=== PATIENT | female | born 1950 | race Caucasian/White ===

== ENCOUNTER 2018-08-12 17:35 | Emergency (ER) | payer MEDICARE, BC ==
--- NOTE | 2018-08-12 18:32 | EDM.PDOC ---
ED HPI GENERAL MEDICAL PROBLEM - General Chief Complaint: Bite:Animal, Insect Stated Complaint: DEER TICK Time Seen by Provider: 08/12/18 18:00 - History of Present Illness INITIAL COMMENTS - FREE TEXT/NARRATIVE: Mrs. Caldwell is a very active 68 year-old female who does not have a primary care provider locally established. Patient was evaluation 1 week ago for a large erythematous sore likely secondary to a tick on her left lateral thigh which subsequently improved. She had a another tick bite on the right lower lateral leg which has a small erythematous ring around it. She took a picture of the area 1 weeks ago. She was seen at a local urgent care and was prescribed doxycycline 100 mg twice a day for 10 days. Patient presents today with a another tick bite on her right upper inner arm. The tick was not there last evening when she did complete tick check. The tick is embedded with slight surrounding erythema. She attempted to remove the tick but was only able to piece out the leg of the tick. He should have mild surrounding erythema in the area but no significant discomfort. 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: Musculoskeletal History: Reports: None Endocrine/Metabolic History: Reports: Hypoparathyroidism - Past Surgical History Head Surgeries/Procedures: Reports: None HEENT Surgical History: Reports: None Cardiovascular Surgical History: Reports: None GI Surgical History: Reports: Appendectomy Female Surgical History: Reports: Section, Hysterectomy Endocrine Surgical History: Reports: None, Thyroidectomy Musculoskeletal Surgical History: Reports: Other (See Below) Dermatological Surgical History: Reports: None Social & Family History - Tobacco Use Smoking Status *Q: Never Smoker Second Hand Smoke Exposure: No - Caffeine Use Caffeine Use: Reports: Coffee - Recreational Drug Use Recreational Drug Use: No ED ROS GENERAL - Review of Systems Review Of Systems: ROS reveals no pertinent complaints other than HPI. ED EXAM, ANIMAL BITE - Physical Exam Exam: See Below Exam Limited By: No Limitations General Appearance: Alert, WD/WN, No Apparent Distress Eye Exam: Bilateral Eye: EOMI, PERRL Ears: Normal External Exam, Hearing Grossly Normal Nose: Normal Inspection, Normal Mucosa Throat/Mouth: Normal Inspection Head: Normocephalic Neck: Normal Inspection, Supple, Full Range of Motion Respiratory/Chest: No Respiratory Distress Cardiovascular: Regular Rate, Rhythm Extremities: Normal Inspection (imbedded tick right inner upper arm with central bruising and slight surround erythema. Mild pain to palpation. No warmth or induration noted. ), Normal Range of Motion, No Pedal Edema, Normal Capillary Refill Neurological: Alert, Oriented, CN II-XII Intact, Normal Cognition, Normal Gait, Normal Reflexes, No Motor/Sensory Deficits Psychiatric: Normal Affect, Normal Mood Skin Exam: Warm/Dry, DRY, I, Normal Color, NR ED ANIMAL BITE PROCEDURES - Foreign Body Removal Indication:: Tick removal Right inner upper am. Consent Obtained: Patient Anesthesia Type: Local (Lidocaine 1% with epi) Findings:: Area to cleansed with topical alcohol before local injection and before tick removal. Pickups used to pull skin and small 11 blade scalp used to remove tick. Area was bandage in an appropriate manner. Complications:: No Course - Vital Signs Last Recorded V/S: Last Vital Signs Temp 37.2 C 08/12/18 17:52 Pulse 95 08/12/18 17:52 Resp 16 08/12/18 17:52 BP 157/90 H 08/12/18 17:52 Pulse Ox 97 08/12/18 17:52 - Orders/Labs/Meds Orders: Active Orders 24 hr Category Date Time Status LYME (B. BURGDORFERI) PCR Urgent Lab 08/12/18 18:19 Stop Req LYMEAB(IGG/M)BABESIEHRLIC Routine Lab 08/12/18 18:21 Ordered Departure - Departure Time of Disposition: 18:45 Disposition: Home, Self-Care 01 Clinical Impression: Tick bite - Discharge Information Prescriptions: Doxycycline [Vibramycin] 100 mg PO BID 11 Days #22 cap Instructions: Tick Bite Information, Adult, Lyme Disease Referrals: PCP,None [Primary Care Provider] - 1 Week (Call PCP of choice to review Tick Borne panel results. Patient started 10 days of Doxycycline, additional 11 days offere, full 21 day course pending blood test results ) Additional Instructions: 1. Tick Borne Blood panel ordered. It is a send out to [place] or [place] and may take up to 1 week to get results. 2. Additional 11 days course of Doxycycline offered to complete the recommended 21 day course due to increased risk. 3. Tylenol or Ibuprofen as needed for localized pain, erythema and swelling. 4. Return to ER if concerns after returning from out of town trip. Consider contacting local clinic to establish a primary care provider. - Problem List & Annotations (1) Tick bite SNOMED Code(s): 11455843, 232002505 Code(s): W57.XXXA - BIT/STUNG BY NONVENOM INSECT & OTH NONVENOM ARTHROPODS, INIT Status: Acute Current Visit: Yes - My Orders Last 24 Hours: My Active Orders 08/12/18 18:19 LYME (B. BURGDORFERI) PCR Urgent 08/12/18 18:21 LYMEAB(IGG/M)BABESIEHRLIC Routine - Assessment/Plan Last 24 Hours: My Active Orders 08/12/18 18:19 LYME (B. BURGDORFERI) PCR Urgent 08/12/18 18:21 LYMEAB(IGG/M)BABESIEHRLIC Routine
[2018-08-16 17:08] LABS: BABESIA MICROTI IGG <1:10 (Neg:<1:10); BABESIA MICROTI IGM <1:10 (Neg:<1:10); E. CHAFFEENSIS (HME) IGG TITER Negative (Neg:<1:64); E. CHAFFEENSIS (HME) IGM TITER Negative (Neg:<1:20); HGE IGG TITER Negative (Neg:<1:64); HGE IGM TITER Negative (Neg:<1:20); LYME IGG/IGM AB <0.91 ISR (0.00-0.90)
== END 2018-08-12 18:53 | disposition home or self-care (01) ==
LOC: JP.ED 17:35
DX: S40.861A Insect bite (nonvenomous) of right upper arm, initial encounter (principal); I10 Essential (primary) hypertension; E20.9 Hypoparathyroidism, unspecified; Z91.040 Latex allergy status; Z88.8 Allergy status to other drugs, medicaments and biological substances; Z88.1 Allergy status to other antibiotic agents; W57.XXXA Bitten or stung by nonvenomous insect and other nonvenomous arthropods, initial encounter
CPT/HCPCS: 86617; 86617-59; 86618; 86666; 86753; 99282

== ENCOUNTER 2018-10-30 10:46 | Emergency (ER) | payer MEDICARE, BC ==
[2018-10-30] MEDS ORDERED: Proparacaine 0.5% Ophth Soln 15 ML Bottle EYELF ONE (11:53)
--- NOTE | 2018-10-30 12:17 | EDM.PDOC ---
ED HPI GENERAL MEDICAL PROBLEM - General Chief Complaint: Eye Problems Stated Complaint: SOMETHING IN EYE Time Seen by Provider: 10/30/18 11:45 Source of Information: Reports: Patient History Limitations: Reports: No Limitations - History of Present Illness INITIAL COMMENTS - FREE TEXT/NARRATIVE: 68-year-old female with a foreign body sensation in her right eye. She felt abnormal yesterday, she flushed it out with water and it seemed to be better, it did not bother her overnight but this morning it started bothering her again. After trying to flush it out and not improving she came in to be seen. Duration: Hour(s): (Symptoms for 12 hours) Location: Reports: Other (Right eye) eye Pain Score (Numeric/FACES): 6 - Related Data Allergies Allergy/AdvReac Type Severity Reaction Status Date / Time moxifloxacin [From Avelox] Allergy Hives Verified 10/30/18 11:39 latex AdvReac Rash Verified 10/30/18 11:39 Home Meds: Home Meds Levothyroxine [Synthroid] 100 mcg PO ACBREAKFAST 08/12/18 [History] Pantoprazole [ProTONIX] 40 mg PO DAILY 08/12/18 [History] Past Medical History HEENT History: Reports: Impaired Vision Cardiovascular History: Reports: Hypertension Gastrointestinal History: Reports: None Genitourinary History: Reports: None 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: Musculoskeletal History: Reports: None Endocrine/Metabolic History: Reports: Hypoparathyroidism - Past Surgical History Head Surgeries/Procedures: Reports: None HEENT Surgical History: Reports: None Cardiovascular Surgical History: Reports: None GI Surgical History: Reports: Appendectomy Female Surgical History: Reports: Section, Hysterectomy Endocrine Surgical History: Reports: None, Thyroidectomy Musculoskeletal Surgical History: Reports: Other (See Below) Dermatological Surgical History: Reports: None Social & Family History - Tobacco Use Smoking Status *Q: Never Smoker - Caffeine Use Caffeine Use: Reports: Coffee - Recreational Drug Use Recreational Drug Use: No ED ROS GENERAL - Review of Systems Review Of Systems: See Below Constitutional: Denies: Fever, Chills Respiratory: Denies: Shortness of Breath Cardiovascular: Denies: Chest Pain GI/Abdominal: Denies: Nausea, Vomiting ED EXAM GENERAL W FULL EYE - Physical Exam Exam: See Below General Appearance: Alert, No Apparent Distress, Other (Looks uncomfortable) Eye Exam: Right Eye: Conjunctival Injection, Foreign Body, Bilateral Eye: PERRL Eyelids: Right: Edema, Erythema Cornea Exam: Right: Normal Appearance Respiratory/Chest: No Respiratory Distress, Lungs Clear Neurological: Alert, Oriented Course - Vital Signs Last Recorded V/S: Last Vital Signs Temp 97.5 F 10/30/18 11:38 Pulse 90 10/30/18 11:38 Resp 16 10/30/18 11:38 BP 141/82 H 10/30/18 11:38 Pulse Ox 97 10/30/18 11:38 - Orders/Labs/Meds Meds: Medications Discontinued Medications Generic Name Dose Route Start Last Admin Trade Name Freq PRN Reason Stop Dose Admin Proparacaine HCl 1 ml 10/30/18 11:53 10/30/18 12:02 Proparacaine 0.5% Ophth Soln EYELF 10/30/18 11:54 1 drop ONETIME ONE Administration - Re-Assessments/Exams Free Text/Narrative Re-Assessment/Exam: 10/30/18 12:16 Proparacaine eyedrops were placed in the right eye, symptoms resolved. Fluorescein staining was then performed which was normal. Under slit lamp exam the cornea was normal, the upper eyelid was inverted and there was a small curled hair under the eyelid which was removed without difficulty. No other foreign body was seen. Departure - Departure Time of Disposition: 12:35 Disposition: Home, Self-Care 01 Clinical Impression: Foreign body of eyelid, right - Discharge Information Instructions: Eye Foreign Body, [id number] Referrals: PCP,None [Primary Care Provider] - Forms: ED Department Discharge Care Plan Goals: If symptoms are persistent tomorrow, recheck with optometry. Return to the emergency room if significantly worsening or you develop other concerns.
== END 2018-10-30 12:36 | disposition home or self-care (01) ==
LOC: JP.ED 10:46
DX: T15.11XA Foreign body in conjunctival sac, right eye, initial encounter (principal); I10 Essential (primary) hypertension; Z91.040 Latex allergy status; Z88.1 Allergy status to other antibiotic agents; Z79.899 Other long term (current) drug therapy
CPT/HCPCS: 99282; A9270